=== PATIENT | female | born 1945 | race Caucasian/White ===

== ENCOUNTER 2017-07-27 10:22 | Outpatient (CLI) | payer MEDICARE, BC ==
--- NOTE | 2017-07-27 14:08 | CT ---
CT CHEST WITH IV CONTRAST CT ABDOMEN WITH IV CONTRAST: Date: 07/27/17 HISTORY: Left-sided breast cancer, status post lumpectomy, chemo, and radiation therapy. COMPARISON: CT pulmonary angiogram of 05/16/17. FINDINGS: Postop seroma in the left breast is again seen. There is a 1.0 cm low density lesion in the right lo be of the thyroid gland. No mediastinal, hilar, axillary, or internal mammary lymphadenopathy is jayesh ntified. No pulmonary nodules or lung masses are seen. There has been interval resolution of the pre viously noted pericardial and bilateral pleural effusions. There are small focal areas of nodular pl eural thickening posteriorly. The liver, pancreas, adrenal glands, and right kidney are normal. A small cyst is seen in the left k idney. There are calcified granulomas in the spleen. No free air, free fluid, or lymphadenopathy not ed in the abdomen. The patient is post cholecystectomy. The small bowel loops are not abnormally dil ated. There are vascular calcifications without evidence of aneurysmal dilatation of the thoracoabdo trish aorta. There are degenerative changes in the thoracolumbar spine. No osteolytic or osteoblasti c lesions are seen. IMPRESSION: 1. Interval resolution of pericardial and pleural effusion since 05/16/17. 2. Nonspecific few foci of nodular pleural thickening. Follow-up exam is recommended in 3 months. POS: [facility]
[2017-07-27] MEDS ORDERED: Iopamidol 370 76% 100 ML VIAL ONE (16:00)
== END 2017-07-27 10:23 | disposition home or self-care (01) ==
LOC: CT 10:22
PROVIDERS: ATTEND Internal Medicine Hematology & Oncology
DX: C50.919 Malignant neoplasm of unspecified site of unspecified female breast (principal); J92.9 Pleural plaque without asbestos
CPT/HCPCS: 71260; 74160

== ENCOUNTER 2017-12-05 13:53 | Outpatient (CLI) | payer MEDICARE, BC | END 2017-12-05 13:54 | disposition home or self-care (01) | LOC: BICMAMMO 13:53 | PROVIDERS: ATTEND Internal Medicine Hematology & Oncology | DX: Z08 Encounter for follow-up examination after completed treatment for malignant neoplasm (principal); Z85.3 Personal history of malignant neoplasm of breast | CPT/HCPCS: 77066; G0279 ==

== ENCOUNTER 2018-06-10 10:56 | Outpatient (CLI) | payer MEDICARE, BC | END 2018-06-10 10:57 | disposition home or self-care (01) | LOC: BICULT 10:56 | PROVIDERS: ATTEND Surgery | DX: S20.02XA Contusion of left breast, initial encounter (principal) ==

== ENCOUNTER 2018-12-06 13:37 | Outpatient (CLI) | payer MEDICARE, BC ==
--- NOTE | 2018-12-06 14:34 | BD ---
Exam: DEXA Bone Density Comparison: 09-26-16 History: 73-year-old post-menopausal female for screening. Lumbar Spine: BMD (g/cm2) L1 0.729 T-Score: -2.4 L2 0.724 T-Score: -2.8 L3 0.751 T-Score: -3.0 L4 0.832 T-Score: -2.1 L1-L4 0.764 T-Score: -2.6 Femoral Neck: 0.502 T-Score: -3.1 Total Femur: 0.692 T-Score: -2.1 Impression: Osteoporosis. The patient has an approximately 8 x increase risk for fracture when compared with celena g patient's with bone mineral density. POS: [facility]
== END 2018-12-06 13:38 | disposition home or self-care (01) ==
LOC: BICMAMMO 13:37
PROVIDERS: ATTEND Internal Medicine Hematology & Oncology
DX: Z13.820 Encounter for screening for osteoporosis (principal); Z78.0 Asymptomatic menopausal state; M81.0 Age-related osteoporosis without current pathological fracture; Z85.3 Personal history of malignant neoplasm of breast
CPT/HCPCS: 77066; 77080; G0279

== ENCOUNTER 2019-09-27 10:43 | Emergency (ER) | payer MEDICARE, BC ==
[2019-09-27 11:31] LABS: #Eosinphils 0.5 thou/uL (0.0-0.7); #Lymphocytes 1.5 thou/uL (1.20-3.40); #Monocytes 0.8 thou/uL (0.11-0.59); #Neutrophils 6.1 thou/uL (1.40-6.50); %Basophils 0.3 % (0.0-1.0); %Eosinophils 5.6 % (0.0-10.0); %Lymphocytes 16.9 % (21.0-51.0); %Monocytes 9.2 % (0.0-10.0); %Neutrophils 67.9 % (42.0-75.0); Hemoglobin 12.4 g/dL (12.0-16.0); Mean Corpuscular HGB CONC 35.5 g/dL (32.0-36.0); Mean Corpuscular Hemoglobin 31.1 pg (27.0-31.0); Mean Corpuscular Volume 87.6 fL (78.0-98.0); Mean Platelet Volume 6.6 fL (7.4-10.4); Platelet Count 224 thou/uL (130-400); RBC Distribution Width 11.4 % (11.5-14.5); Red Blood Cell (RBC) Count 3.99 mill/uL (4.20-5.40)
[2019-09-27 11:53] LABS: ALT (SGPT) 8 U/L (8-55); AST (SGOT) 16 U/L (5-34); Albumin 4.2 g/dL (3.4-4.8); Alkaline Phosphatase 65 U/L (40-110); Anion Gap 13 mmol/L (10-20); BUN (Urea Nitrogen) 16 mg/dL (9.8-20.1); Bilirubin, Total 0.4 mg/dL (0.2-1.2); Calc. Creatinine Clearance 0 mL/min (70-130); Calcium 8.9 mg/dL (7.8-10.44); Carbon Dioxide 22 mmol/L (23-31); Chloride 99 mmol/L (98-107); Estimated GFR-MDRD 80; Glucose 92 mg/dL (83-110); Potassium 4.5 mmol/L (3.5-5.1); Protein, Total 6.2 g/dL (6.0-8.3); Sodium 129 mmol/L (136-145)
--- NOTE | 2019-09-27 13:15 | RAD ---
EXAM: Chest one view: HISTORY: Dyspnea COMPARISON: 05/16/2017 FINDINGS: Mild increased linear and interstitial markings bilaterally but showing improvement from prior study. Heart size: Minimal cardiomegaly. Lungs: No confluent lobar pneumonia. No evidence for confluent pneumonia, pleural effusion, acute edema, or pneumothorax, or other signifi cant acute process. Healed right clavicle fracture. IMPRESSION: No significant acute process. Overall improvement from prior exam. Atherosclerosis of the aorta.
== END 2019-09-27 13:50 | disposition home or self-care (01) ==
LOC: ERS 10:43
DX: R53.1 Weakness (principal); I10 Essential (primary) hypertension; Z79.899 Other long term (current) drug therapy
CPT/HCPCS: 36415; 71045; 80053; 84443; 84484; 85025; 93005

== ENCOUNTER 2019-12-26 14:50 | Outpatient (CLI) | payer MEDICARE, BC ==
--- NOTE | 2019-12-26 15:29 | MMO ---
Bilateral MAMMO Bilat Diag [facility]. CLINICAL HISTORY: Patient is 74 years old and is seen for diagnostic exam. The patient has no family history of breast cancer. The patient has a history of lumpectomy procedure revealed invasive ductal left breast carcinoma in November, and Ultrasound guided core biopsy procedure revealed invasive ductal left breast carcinoma in October,. The patient has a history of left Lumpectomy in November, - malignant and left Ultrasound Guided Core Biopsy in October,. VIEWS: The views performed were: bilateral craniocaudal with tomosynthesis; bilateral mediolateral oblique with tomosynthesis; and bilateral mediolateral with tomosynthesis. FILMS COMPARED: The present examination has been compared to prior imaging studies performed at [facility] on 09/26/2016, 10/17/2016, 12/05/2017 and 12/06/2018. This study has been interpreted with the assistance of computer-aided detection. MAMMOGRAM FINDINGS: The breasts are heterogeneously dense, which could obscure a lesion on mammography. Benign calcifications are noted bilaterally. There are stable left sided post-operative/XRT changes. There are no suspicious masses, suspicious calcifications, or new areas of architectural distortion. IMPRESSION: THERE IS NO MAMMOGRAPHIC EVIDENCE OF MALIGNANCY. A ROUTINE FOLLOW-UP MAMMOGRAM IN 1 YEAR IS RECOMMENDED. THE RESULTS OF THIS EXAM WERE SENT TO THE PATIENT. ACR BI-RADS Category 2 - Benign finding MAMMOGRAPHY NOTE: 1. A negative mammogram report should not delay a biopsy if a dominant of clinically suspicious mass is present. 2. Approximately 10% to 15% of breast cancers are not detected by mammography. 3. Adenosis and dense breasts may obscure an underlying neoplasm. Reported by: RATNA ADKINS MD Electonically Signed: [id number]
--- NOTE | 2019-12-26 15:46 | BD ---
DEXA BONE DENSITOMETRY: (Dual energy x-ray absorptiometry) DATE: 12/26/2019 HISTORY: 74-year old white female for age-related, post-menopausal, osteoporosis screening. weight: 150 lbs height: 63 in. age of menopause: 50 COMPARISON: 12/06/2018 FINDINGS: The bone mineral density (BMD) is given in grams per square centimeter (g/cm2): LUMBAR SPINE: BMD (g/cm^2) T score Z score L1: 0.716 -2.5 -0.3 L2: 0.793 -2.1 0.3 L3: 0.851 -2.1 0.4 L4: 0.898 -1.5 1.1 Total: 0.825 -2.0 0.4 Change in BMD compared to previous DEXA: +7.9 %. HIP: BMD (g/cm^2) T score Z score Femoral neck: 0.507 -3.1 -1.0 Total: 0.705 -1.9 -0.1 Change in BMD compared to previous DEXA: -1.7 %. IMPRESSION: 1.) The mean bone mineral density of the lumbar spine is osteopenic. Fracture risk is increased. 2) The bone mineral density of the femoral neck is osteoporotic. Fracture risk is high.
== END 2019-12-26 14:51 | disposition home or self-care (01) ==
LOC: BICMAMMO 14:50
PROVIDERS: ATTEND Internal Medicine Hematology & Oncology
DX: C50.312 Malignant neoplasm of lower-inner quadrant of left female breast (principal); M81.0 Age-related osteoporosis without current pathological fracture; Z78.0 Asymptomatic menopausal state; M85.88 Other specified disorders of bone density and structure, other site
CPT/HCPCS: 77066; 77080; G0279

== ENCOUNTER 2020-03-22 14:47 | Outpatient (CLI) | payer MEDICARE, BC ==
[2020-03-22] MEDS ORDERED: Magnevist 469MG/ML 20 ML VIAL ONE (15:48)
--- NOTE | 2020-03-22 20:00 | MRI ---
MRI LUMBAR SPINE WITH AND WITHOUT CONTRAST: Indications: Low back pain. History of breast cancer. Comparison: None FINDINGS: Lumbar vertebrae maintain normal height and alignment. Vertebral body signal is normally preserved. T here is no evidence of edema or osseous metastasis. The lumbar disc spaces are preserved. Mild degenerative disc signal changes are seen. L1-2: Mild disc bulge mildly flattens the anterior thecal sac. No significant central canal or forami nal stenosis. L2-3: Mild disc bulge. Asymmetric bulge/protrusion is seen to the right with right foraminal encroach ment. This asymmetric protrusion does contact and mildly displace the exiting right L2 nerve root. Th ere is mild facet arthrosis and mild central canal stenosis. L3-4: Broad based disc bulge flattens the thecal sac. Moderate facet and ligamentous hypertrophy is p resent. These changes result in moderate to severe central canal stenosis. Bilateral foraminal stenos is, slightly more severe on the left. L4-5: Mild disc bulge. Prominent facet and ligamentous hypertrophy. These changes result in moderate central canal stenosis. Mild bilateral foraminal stenosis due to disc bulge and facet hypertrophy. L5-S1: Mild disc bulge. Mild facet arthrosis. Congenitially smaller thecal sac. No significant centra l canal stenosis. No evidence of significant foraminal stenosis. IMPRESSION: 1. Disc bulge with central canal stenosis prominent at L3-4 and L4-5 as described. 2. Asymmetric bulge to the right at L2-3 as described. POS: [facility]
== END 2020-03-22 14:48 | disposition home or self-care (01) ==
LOC: BICMRI 14:47
PROVIDERS: ATTEND Internal Medicine Hematology & Oncology
DX: M54.5 Low back pain (principal); C50.919 Malignant neoplasm of unspecified site of unspecified female breast; M51.26 Other intervertebral disc displacement, lumbar region; M48.061 Spinal stenosis, lumbar region without neurogenic claudication
CPT/HCPCS: 72158; 82565; A9579

== ENCOUNTER 2020-08-30 13:55 | Outpatient (CLI) | payer MEDICARE, BC ==
--- NOTE | 2020-08-30 14:19 | RAD ---
XR Knee Rt 4 View STANDARD History: Knee pain Comparison: None. Findings: Mild demineralization. No acute displaced fracture or malalignment. No significant joint ef fusion. Impression: No acute osseous abnormality.
== END 2020-08-30 13:56 | disposition home or self-care (01) ==
LOC: BICRAD 13:55
PROVIDERS: ATTEND Obstetrics & Gynecology
DX: M25.561 Pain in right knee (principal)

== ENCOUNTER 2021-02-02 15:07 | Outpatient (CLI) | payer MEDICARE, BC ==
[~2021-02-02 15:07] MED LIST: Iopamidol 370 76% 100 ML VIAL ONE
== END 2021-02-02 15:08 | disposition home or self-care (01) ==
LOC: BICCT 15:07
PROVIDERS: ATTEND Student in an Organized Health Care Education/Training Program
DX: J38.00 Paralysis of vocal cords and larynx, unspecified (principal); Z98.1 Arthrodesis status; Z87.81 Personal history of (healed) traumatic fracture
CPT/HCPCS: 70491; 82565; Q9967

== ENCOUNTER 2021-06-02 | Outpatient (CLI) | payer MEDICARE, BC | END 2021-06-02 13:57 | disposition home or self-care (01) ==

== ENCOUNTER 2021-10-12 10:38 | Inpatient (IN) | payer MEDICARE, BC ==
[2021-10-12 11:30] LABS: #Basophils 0.1 thou/uL (0.0-0.2); #Eosinphils 0.4 thou/uL (0.0-0.7); #Lymphocytes 1.9 thou/uL (1.20-3.40); #Monocytes 0.7 thou/uL (0.11-0.59); %Basophils 0.6 % (0.0-1.0); %Eosinophils 4.7 % (0.0-10.0); %Monocytes 8.2 % (0.0-10.0); %Neutrophils 62.5 % (42.0-75.0); Hemoglobin 13.5 g/dL (12.0-16.0); Mean Corpuscular Hemoglobin 31.9 pg (27.0-31.0); Mean Corpuscular Volume 93.7 fL (78.0-98.0); Mean Platelet Volume 6.7 fL (7.4-10.4); Platelet Count 245 thou/uL (130-400); RBC Distribution Width 11.6 % (11.5-14.5); Red Blood Cell (RBC) Count 4.24 mill/uL (4.20-5.40); White Blood Cell (WBC) Count 8.1 thou/uL (4.8-10.8)
[2021-10-12 11:55] LABS: ALT (SGPT) 10 U/L (8-55); AST (SGOT) 15 U/L (5-34); Albumin 4.1 g/dL (3.4-4.8); Alkaline Phosphatase 76 U/L (40-110); Anion Gap 11 mmol/L (10-20); BUN (Urea Nitrogen) 13 mg/dL (9.8-20.1); Bilirubin, Total 0.4 mg/dL (0.2-1.2); Calc. Creatinine Clearance 0 mL/min (70-130); Calcium 9.6 mg/dL (7.8-10.44); Carbon Dioxide 28 mmol/L (23-31); Chloride 105 mmol/L (98-107); Globulin 2.6 g/dL (2.4-3.5); Glucose 88 mg/dL (83-110); Potassium 4.4 mmol/L (3.5-5.1); Protein, Total 6.7 g/dL (5.8-8.1); Sodium 140 mmol/L (136-145)
[2021-10-12 15:26] LABS: Bilirubin Negative (Negative); Blood, Urine Negative (Negative); Clarity Clear (Clear); Glucose, Urine (Dipstick) Normal (Negative); Ketone, Urine Negative (Negative); Leukocyte Negative Leu/uL (Negative); Nitrite Negative (Negative); Protein, Urine (Dipstick) Negative (Neg-Trace); Specific Gravity, Urine 1.007 (1.002-1.036); Urobilinogen Normal mg/dL (Less than 2)
[2021-10-12 15:39] LABS: Amphetamine Not Detected (NotDetected); Barbiturates Screen Not Detected (NotDetected); Benzodiazepine Screen Not Detected (NotDetected); Cocaine Metabolite Screen Not Detected (NotDetected); Methadone Not Detected (NotDetected); Methamphetamine Not Detected (NotDetected); Opiate Screen Detected (NotDetected); Oxycodone Screen Not Detected (NotDetected); Phencyclidine (PCP) Not Detected (NotDetected); THC/Cannabinoid Screen Not Detected (NotDetected); Tricyclic Screen Not Detected (NotDetected)
[2021-10-12 16:21] LABS: Acetaminophen Less than 6.0 mcg/mL (10.0-30.0); Alcohol Less than 10 mg/dL (Less than 10); Salicylate Less than 8.0 mg/dL (15.0-30.0)
[2021-10-12] MEDS ORDERED: Aspirin Chewable 81 MG TAB ONE (17:12)
[2021-10-12] MEDS ORDERED: Acetaminophen 325 MG TAB PO PRN (18:30)
[2021-10-12] MEDS ORDERED: Ondansetron PF 4 MG/2 ML Vial IVP PRN (18:30)
[2021-10-12 18:57] LABS: Lactic Acid 2.2 mmol/L (0.5-2.2)
[2021-10-12 19:04] LABS: #Basophils 0.1 thou/uL (0.0-0.2); #Eosinphils 0.4 thou/uL (0.0-0.7); #Lymphocytes 2.2 thou/uL (1.20-3.40); #Monocytes 0.6 thou/uL (0.11-0.59); #Neutrophils 5.4 thou/uL (1.40-6.50); %Monocytes 6.5 % (0.0-10.0); %Neutrophils 62.6 % (42.0-75.0); Hemoglobin 13.4 g/dL (12.0-16.0); Mean Corpuscular HGB CONC 35.3 g/dL (32.0-36.0); Mean Corpuscular Volume 93.5 fL (78.0-98.0); Platelet Count 237 thou/uL (130-400); RBC Distribution Width 11.6 % (11.5-14.5); Red Blood Cell (RBC) Count 4.04 mill/uL (4.20-5.40); White Blood Cell (WBC) Count 8.7 thou/uL (4.8-10.8)
[2021-10-12 19:26] LABS: ALT (SGPT) 9 U/L (8-55); AST (SGOT) 17 U/L (5-34); Alkaline Phosphatase 76 U/L (40-110); Anion Gap 9 mmol/L (10-20); BUN (Urea Nitrogen) 12 mg/dL (9.8-20.1); Bilirubin, Total 0.3 mg/dL (0.2-1.2); Calc. Creatinine Clearance 0 mL/min (70-130); Calcium 9.5 mg/dL (7.8-10.44); Carbon Dioxide 27 mmol/L (23-31); Chloride 106 mmol/L (98-107); Globulin 2.5 g/dL (2.4-3.5); Glucose 144 mg/dL (83-110); Potassium 3.3 mmol/L (3.5-5.1); Protein, Total 6.5 g/dL (5.8-8.1); Sodium 139 mmol/L (136-145)
[2021-10-12] MEDS ORDERED: hydrALAZINE 20 MG/ML VIAL SLOW IVP PRN (19:34)
[2021-10-12] MEDS ORDERED: Potassium Chloride 20 MEQ TAB PO SCH (19:45)
[2021-10-12] MEDS: Sodium Chloride 0.9% 1,000 ML IV SCH (20:51)
[2021-10-12] MEDS ORDERED: Famotidine/PF 20 mg/2ml Vial ONE (21:13)
[2021-10-12] MEDS ORDERED: Potassium Chloride 20 MEQ TAB ONE (21:13)
[2021-10-12] MEDS: Atorvastatin Calcium 40 MG TAB PO SCH (21:20)
[2021-10-12] MEDS: Famotidine/PF 20 mg/2ml Vial SLOW IVP SCH (21:21)
[2021-10-13 03:13] VITALS: BMI 26.4
[2021-10-13] MEDS ORDERED: Melatonin 3 MG TAB PO SCH (03:15)
[2021-10-13] MEDS: Sodium Chloride 0.9% 1,000 ML IV SCH (03:38)
[2021-10-13 06:48] LABS: Hemoglobin A1c 5.3 % (4.0-6.0)
[2021-10-13 07:06] LABS: Cardiac Risk 3.3 (Less than 4.5); Magnesium 1.6 mg/dL (1.6-2.6)
[2021-10-13] MEDS: Famotidine/PF 20 mg/2ml Vial SLOW IVP SCH ×2 (08:34→21:55)
[2021-10-13] MEDS ORDERED: Lorazepam 2 MG/ML VIAL SLOW IVP SCH ×2 (09:00→22:30)
[2021-10-13] MEDS: Thiamine HCl 200 MG/2 ML VIAL SLOW IVP SCH ×3 (09:55→21:55)
[2021-10-13] MEDS ORDERED: Magnevist 469MG/ML 20 ML VIAL ONE (11:04)
[2021-10-13 12:35] LABS: SARS-CoV-2 PCR by NAA Not Detected (NotDetected)
[2021-10-13] MEDS ORDERED: Dexamethasone 4 mg/ml Vial SLOW IVP SCH ×2 (16:00→18:00)
[2021-10-13] MEDS ORDERED: OLANZapine 10 MG VIAL IM SCH (20:45)
[2021-10-13] MEDS ORDERED: Sterile Water 10 ML VIAL FS PRN (21:00)
[2021-10-13] MEDS: OLANZapine 10 MG VIAL IM SCH ×2 (21:55→22:07)
[2021-10-13] MEDS: Atorvastatin Calcium 40 MG TAB PO SCH (21:56)
[2021-10-14] MEDS ORDERED: Lorazepam 2 MG/ML VIAL SLOW IVP SCH (02:15)
[2021-10-14] MEDS: Dexamethasone 4 mg/ml Vial SLOW IVP SCH ×4 (06:36→18:13)
[2021-10-14 07:09] LABS: Anion Gap 15 mmol/L (10-20); BUN (Urea Nitrogen) 14 mg/dL (9.8-20.1); Calc. Creatinine Clearance 68 mL/min (70-130); Calcium 10.1 mg/dL (7.8-10.44); Carbon Dioxide 21 mmol/L (23-31); Chloride 106 mmol/L (98-107); Glucose 144 mg/dL (83-110); Potassium 3.8 mmol/L (3.5-5.1); Sodium 138 mmol/L (136-145)
[2021-10-14 07:33] LABS: Thyroid Stimulating Hormone 0.695 uIU/mL (0.35-4.94)
[2021-10-14] MEDS: Famotidine/PF 20 mg/2ml Vial SLOW IVP SCH (08:38)
[2021-10-14] MEDS: Thiamine HCl 200 MG/2 ML VIAL SLOW IVP SCH ×3 (08:38→22:02)
[2021-10-14 11:16] LABS: Syphilis Antibody Nonreactive (Nonreactive); Syphilis Antibody Index 0.07 S/CO (<1.00 Non-Reactive)
[2021-10-14] MEDS ORDERED: Ipratropium Bromide 0.03% Nasal Inhaler 30 ml Bottle EA NARE PRN (15:02)
[2021-10-14] MEDS: Melatonin 3 MG TAB PO PRN (22:02)
[2021-10-14] MEDS: Famotidine 20 MG TAB PO SCH (22:02)
[2021-10-14] MEDS: Atorvastatin Calcium 40 MG TAB PO SCH (22:02)
[2021-10-14] MEDS: Loratadine 10 MG TAB PO SCH (22:03)
[2021-10-14] MEDS: Lisinopril 10 MG TAB PO SCH (22:08)
[2021-10-15] MEDS: Dexamethasone 4 mg/ml Vial SLOW IVP SCH ×4 (00:39→17:36)
[2021-10-15] MEDS ORDERED: Amlodipine 5 MG TAB PO SCH ×2 (09:00→17:15)
[2021-10-15] MEDS: Lisinopril 10 MG TAB PO SCH ×2 (09:55→22:01)
[2021-10-15] MEDS: DULoxetine 60 MG CAP PO SCH (09:55)
[2021-10-15] MEDS: Thiamine HCl 200 MG/2 ML VIAL SLOW IVP SCH ×3 (09:55→22:01)
[2021-10-15] MEDS ORDERED: Iopamidol-370 76% 500 ML 1 ML ONE (11:39)
[2021-10-15] MEDS: Atorvastatin Calcium 40 MG TAB PO SCH (22:01)
[2021-10-15] MEDS: Loratadine 10 MG TAB PO SCH (22:01)
[2021-10-15] MEDS: Melatonin 3 MG TAB PO PRN (22:01)
[2021-10-15] MEDS: Famotidine 20 MG TAB PO SCH (22:02)
[2021-10-16] MEDS: Dexamethasone 4 mg/ml Vial SLOW IVP SCH ×4 (01:22→18:01)
[2021-10-16] MEDS: Cyanocobalamin (Vitamin B-12) 1,000 MCG TAB PO SCH (09:07)
[2021-10-16] MEDS: Amlodipine 5 MG TAB PO SCH (09:07)
[2021-10-16] MEDS: Lisinopril 10 MG TAB PO SCH ×2 (09:07→21:25)
[2021-10-16] MEDS: DULoxetine 60 MG CAP PO SCH (09:07)
[2021-10-16] MEDS ORDERED: Lorazepam 1 MG TAB PO PRN (16:38)
[2021-10-16] MEDS: Atorvastatin Calcium 40 MG TAB PO SCH (21:25)
[2021-10-16] MEDS: Melatonin 3 MG TAB PO PRN (21:25)
[2021-10-16] MEDS: Loratadine 10 MG TAB PO SCH (21:26)
[2021-10-16] MEDS: Famotidine 20 MG TAB PO SCH (21:26)
[2021-10-17] MEDS: Dexamethasone 4 mg/ml Vial SLOW IVP SCH ×3 (00:22→12:22)
[2021-10-17] MEDS: Cyanocobalamin (Vitamin B-12) 1,000 MCG TAB PO SCH (08:37)
[2021-10-17] MEDS: DULoxetine 60 MG CAP PO SCH (08:37)
[2021-10-17] MEDS: Lisinopril 10 MG TAB PO SCH (08:37)
[2021-10-17] MEDS: Amlodipine 5 MG TAB PO SCH (08:37)
[2021-10-17 16:56] VITALS: BP 138/65; TEMP 97.7
[2021-10-17] MEDS ORDERED: Dexamethasone 4 MG TAB PO SCH (17:15)
== END 2021-10-17 17:41 | disposition home or self-care (01) | DRG 54 ==
LOC: ERS 10:38 → ERHOLD 16:56 → NEURO 17:20 → OBSVTOIN 10-13 15:36
PROVIDERS: ADMIT Internal Medicine; ATTEND Family Medicine
DX: C71.9 Malignant neoplasm of brain, unspecified (principal); G93.6 Cerebral edema; G93.49 Other encephalopathy; Z20.822 Contact with and (suspected) exposure to COVID-19; I10 Essential (primary) hypertension; K21.9 Gastro-esophageal reflux disease without esophagitis; Z66 Do not resuscitate; E87.6 Hypokalemia; D25.9 Leiomyoma of uterus, unspecified; F41.9 Anxiety disorder, unspecified; F32.A Depression, unspecified; Z79.899 Other long term (current) drug therapy; Z88.6 Allergy status to analgesic agent; Z85.3 Personal history of malignant neoplasm of breast; Z88.2 Allergy status to sulfonamides; Z86.73 Personal history of transient ischemic attack (TIA), and cerebral infarction without residual deficits; Z90.49 Acquired absence of other specified parts of digestive tract; Z98.41 Cataract extraction status, right eye; Z98.42 Cataract extraction status, left eye
CPT/HCPCS: 36415; 70450; 70553; 71045; 71260; 74177; 78306; 80048; 80053; 80061; 80306; 80307; 81003; 82607; 82746; 83036; 83605; 83735; 84443; 84484; 85025; 86300; 86780; 93005; 93306; 93880; 94760; 95816; 95819; 95957; 96374; 96375; A9503; A9579; G0378; J1100; J2060; J2358; J3411; J7050; J8540; Q9967; S0028; U0003; U0005

== ENCOUNTER 2021-11-01 11:39 | Outpatient (CLI) | payer MEDICARE, BC | END 2021-11-01 11:40 | disposition home or self-care (01) | LOC: CT 11:39 | PROVIDERS: ATTEND Neurological Surgery | DX: G93.89 Other specified disorders of brain (principal); R90.89 Other abnormal findings on diagnostic imaging of central nervous system | CPT/HCPCS: 70450 ==

== ENCOUNTER 2021-11-23 13:37 | Outpatient (CLI) | payer MEDICARE, BC ==
[~2021-11-23 13:37] MED LIST changes: -Iopamidol 370 76% 100 ML VIAL ONE; +Magnevist 469MG/ML 20 ML VIAL ONE
== END 2021-11-23 13:38 | disposition home or self-care (01) ==
LOC: TBSIIMAG 13:37
PROVIDERS: ATTEND Neurological Surgery
DX: G93.89 Other specified disorders of brain (principal); I67.82 Cerebral ischemia; G04.90 Encephalitis and encephalomyelitis, unspecified
CPT/HCPCS: 70553

== ENCOUNTER 2021-12-17 17:18 | Emergency (ER) | payer MEDICARE, BC ==
[2021-12-17 18:43] LABS: #Eosinphils 0.5 thou/uL (0.0-0.7); #Lymphocytes 2.6 thou/uL (1.20-3.40); #Monocytes 0.7 thou/uL (0.11-0.59); #Neutrophils 4.9 thou/uL (1.40-6.50); %Basophils 0.1 % (0.0-1.0); %Eosinophils 5.9 % (0.0-10.0); %Lymphocytes 29.5 % (21.0-51.0); %Monocytes 7.9 % (0.0-10.0); %Neutrophils 56.5 % (42.0-75.0); Hemoglobin 12.3 g/dL (12.0-16.0); Mean Corpuscular HGB CONC 32.8 g/dL (32.0-36.0); Mean Corpuscular Hemoglobin 31.6 pg (27.0-31.0); Mean Corpuscular Volume 96.4 fL (78.0-98.0); Mean Platelet Volume 6.2 fL (7.4-10.4); Platelet Count 249 thou/uL (130-400); Red Blood Cell (RBC) Count 3.88 mill/uL (4.20-5.40); White Blood Cell (WBC) Count 8.7 thou/uL (4.8-10.8)
[2021-12-17 18:59] LABS: Bacteria/HPF 2+ HPF (None Seen); Bilirubin Negative (Negative); Blood, Urine Trace (Negative); Clarity Turbid (Clear); Glucose, Urine (Dipstick) Normal (Negative); Ketone, Urine Negative (Negative); Leukocyte 500 Leu/uL (Negative); Mucous/LPF Rare LPF (<2+); Nitrite Negative (Negative); Protein, Urine (Dipstick) 30 mg/dL (Neg-Trace); Renal Epithelial 0-3 HPF (None Seen); Specific Gravity, Urine 1.025 (1.002-1.036); WBC/HPF Greater than 50 HPF (0-3); pH, Urine 5.5 (5.0-9.0)
[2021-12-17 19:08] LABS: ALT (SGPT) 20 U/L (8-55); AST (SGOT) 19 U/L (5-34); Alkaline Phosphatase 83 U/L (40-110); Anion Gap 15 mmol/L (10-20); BUN (Urea Nitrogen) 12 mg/dL (9.8-20.1); Bilirubin, Total 0.7 mg/dL (0.2-1.2); Calc. Creatinine Clearance 0 mL/min (70-130); Calcium 9.5 mg/dL (7.8-10.44); Carbon Dioxide 23 mmol/L (23-31); Chloride 110 mmol/L (98-107); Globulin 2.1 g/dL (2.4-3.5); Glucose 111 mg/dL (83-110); Potassium 3.5 mmol/L (3.5-5.1); Protein, Total 6.1 g/dL (5.8-8.1); Sodium 144 mmol/L (136-145)
[2021-12-17] MEDS ORDERED: Clindamycin/D5W 900 mg/50 ml Premix Bag ONE ×2 (19:41→20:38)
[2021-12-17] MEDS ORDERED: Nitrofurantoin Macrocrystal 50 MG CAP PO SCH (20:00)
== END 2021-12-17 22:01 | disposition home or self-care (01) ==
LOC: ERS 17:18
DX: I87.8 Other specified disorders of veins (principal); I10 Essential (primary) hypertension; E78.00 Pure hypercholesterolemia, unspecified
CPT/HCPCS: 70450; 80053; 81003; 81015; 83880; 84484; 85025; 93005; 96365; J3490

== ENCOUNTER 2022-05-15 13:46 | Emergency (ER) | payer MEDICARE, BC ==
[2022-05-15 14:47] LABS: #Eosinphils 0.2 thou/uL (0.0-0.7); #Lymphocytes 2.4 thou/uL (1.20-3.40); #Monocytes 0.6 thou/uL (0.11-0.59); #Neutrophils 6.3 thou/uL (1.40-6.50); %Basophils 0.4 % (0.0-1.0); %Eosinophils 2.3 % (0.0-10.0); %Lymphocytes 25.3 % (21.0-51.0); %Monocytes 6.1 % (0.0-10.0); %Neutrophils 65.9 % (42.0-75.0); Hemoglobin 12.5 g/dL (12.0-16.0); Mean Corpuscular HGB CONC 33.3 g/dL (32.0-36.0); Mean Corpuscular Hemoglobin 29.8 pg (27.0-31.0); Mean Corpuscular Volume 89.5 fL (78.0-98.0); Mean Platelet Volume 7.5 fL (7.4-10.4); Platelet Count 211 thou/uL (130-400); RBC Distribution Width 12.5 % (11.5-14.5); Red Blood Cell (RBC) Count 4.19 mill/uL (4.20-5.40); White Blood Cell (WBC) Count 9.5 thou/uL (4.8-10.8)
[2022-05-15 15:17] LABS: ALT (SGPT) 9 U/L (8-55); AST (SGOT) 19 U/L (5-34); Acetaminophen Less than 10.0 mcg/mL (10.0-30.0); Albumin 4.3 g/dL (3.4-4.8); Alcohol Less than 10 mg/dL (Less than 10); Alkaline Phosphatase 95 U/L (40-110); Anion Gap 14 mmol/L (10-20); BUN (Urea Nitrogen) 17 mg/dL (9.8-20.1); Bilirubin, Total 1.1 mg/dL (0.2-1.2); Calc. Creatinine Clearance 0 mL/min (70-130); Calcium 9.9 mg/dL (7.8-10.44); Carbon Dioxide 26 mmol/L (23-31); Chloride 106 mmol/L (98-107); Estimated GFR 73; Globulin 2.7 g/dL (2.4-3.5); Glucose 93 mg/dL (83-110); Potassium 3.3 mmol/L (3.5-5.1); Salicylate Less than 8.0 mg/dL (15.0-30.0); Sodium 143 mmol/L (136-145)
[2022-05-15 15:43] LABS: Bacteria/HPF None Seen HPF (None Seen); Bilirubin Negative (Negative); Blood, Urine Trace (Negative); Clarity Clear (Clear); Glucose, Urine (Dipstick) Normal (Negative); Ketone, Urine Negative (Negative); Leukocyte 75 Leu/uL (Negative); Nitrite Negative (Negative); Protein, Urine (Dipstick) 10 mg/dL (Neg-Trace); RBC/HPF 0-3 HPF (0-3); Specific Gravity, Urine 1.022 (1.002-1.036); Squamous Epithelial 0-3 HPF (0-3); WBC/HPF 0-3 HPF (0-3)
[2022-05-15 15:58] LABS: Amphetamine Not Detected (NotDetected); Barbiturates Screen Not Detected (NotDetected); Benzodiazepine Screen Not Detected (NotDetected); Cocaine Metabolite Screen Not Detected (NotDetected); Methadone Not Detected (NotDetected); Methamphetamine Not Detected (NotDetected); Opiate Screen Not Detected (NotDetected); Oxycodone Screen Not Detected (NotDetected); Phencyclidine (PCP) Not Detected (NotDetected); THC/Cannabinoid Screen Not Detected (NotDetected); Tricyclic Screen Detected (NotDetected)
== END 2022-05-15 16:10 | disposition home or self-care (01) ==
LOC: ERS 13:46
DX: R41.82 Altered mental status, unspecified (principal); E78.5 Hyperlipidemia, unspecified; I10 Essential (primary) hypertension; Z85.3 Personal history of malignant neoplasm of breast; Z85.841 Personal history of malignant neoplasm of brain
CPT/HCPCS: 36415; 70450; 80053; 80306; 80307; 81003; 81015; 84443; 85025; 94760

== ENCOUNTER 2022-09-25 05:03 | Emergency (ER) | payer MEDICARE, BC | END 2022-09-25 06:52 | LOC: ERS 05:03 | DX: S00.93XA Contusion of unspecified part of head, initial encounter (principal); E78.5 Hyperlipidemia, unspecified; I10 Essential (primary) hypertension; K21.9 Gastro-esophageal reflux disease without esophagitis; Y31.XXXA Falling, lying or running before or into moving object, undetermined intent, initial encounter | CPT/HCPCS: 70450; 72125 ==

== ENCOUNTER 2022-10-09 09:55 | Emergency (ER) | payer MEDICARE, BC ==
[2022-10-09] MEDS ORDERED: Morphine 4 MG/ML VIAL ONE (10:44)
[2022-10-09 11:45] LABS: #Basophils 0.1 thou/uL (0.0-0.2); #Eosinphils 0.3 thou/uL (0.0-0.7); #Lymphocytes 1.8 thou/uL (1.20-3.40); #Monocytes 1.1 thou/uL (0.11-0.59); #Neutrophils 9.4 thou/uL (1.40-6.50); %Basophils 0.5 % (0.0-1.0); %Eosinophils 2.4 % (0.0-10.0); %Lymphocytes 14.2 % (21.0-51.0); %Monocytes 8.3 % (0.0-10.0); %Neutrophils 74.6 % (42.0-75.0); Hemoglobin 12.7 g/dL (12.0-16.0); Mean Corpuscular HGB CONC 33.2 g/dL (32.0-36.0); Mean Corpuscular Hemoglobin 32.1 pg (27.0-31.0); Mean Corpuscular Volume 96.7 fl (78.0-98.0); Mean Platelet Volume 7.5 fL (7.4-10.4); Platelet Count 259 10x3/uL (130-400); RBC Distribution Width 11.4 % (11.5-14.5); Red Blood Cell (RBC) Count 3.95 mill/uL (4.20-5.40); White Blood Cell (WBC) Count 12.6 10x3/uL (4.8-10.8)
[2022-10-09 12:18] LABS: AST (SGOT) 24 U/L (5-34); Albumin 4.1 g/dL (3.4-4.8); Alkaline Phosphatase 90 U/L (40-110); Anion Gap 17 mmol/L (10-20); BUN (Urea Nitrogen) 23 mg/dL (9.8-20.1); Bilirubin, Total 0.6 mg/dL (0.2-1.2); Calc. Creatinine Clearance 0 mL/min (70-130); Calcium 9.2 mg/dL (7.8-10.44); Carbon Dioxide 18 mmol/L (23-31); Chloride 110 mmol/L (98-107); Estimated GFR 74; Globulin 2.6 g/dL (2.4-3.5); Glucose 82 mg/dL (83-110); Protein, Total 6.7 g/dL (5.8-8.1); Sodium 141 mmol/L (136-145)
[2022-10-09 12:35] LABS: ALT (SGPT) 16 U/L (8-55)
== END 2022-10-09 13:40 ==
LOC: ERS 09:55
DX: S42.291A Other displaced fracture of upper end of right humerus, initial encounter for closed fracture (principal); I10 Essential (primary) hypertension; E78.5 Hyperlipidemia, unspecified; K21.9 Gastro-esophageal reflux disease without esophagitis; Z79.899 Other long term (current) drug therapy; Z79.82 Long term (current) use of aspirin; W19.XXXA Unspecified fall, initial encounter
CPT/HCPCS: 36415; 70450; 71045; 72170; 80053; 85025; 93005; 96374; J2270

== ENCOUNTER 2025-10-13 11:31 | Outpatient (CLI) | payer MEDICARE, BC | END 2025-10-13 11:32 | disposition home or self-care (01) | LOC: BICRAD 11:31 | PROVIDERS: ATTEND Physician Assistant | DX: M54.50 Low back pain, unspecified (principal); M47.816 Spondylosis without myelopathy or radiculopathy, lumbar region; R93.7 Abnormal findings on diagnostic imaging of other parts of musculoskeletal system | CPT/HCPCS: 72110 ==